=== PATIENT | female | born 1985 | race Two or more races ===

== ENCOUNTER 2020-10-28 13:21 | Inpatient (IN) | payer OTHER ==
[~2020-10-28] VITALS: Ht 154.9 cm; Wt 130.5 kg
[2020-11-02] MEDS ORDERED: METOCLOPRAMIDE 5 MG/ML, 2ML ONE (05:49)
[2020-11-02] MEDS ORDERED: SODIUM CITRATE/CITRIC ACID 15 ML UDC ONE (05:49)
[2020-11-02] MEDS ORDERED: OXYTOCIN 30U/ 0.9% NaCL 500ML 500 ML ONE (05:50)
[2020-11-02] MEDS ORDERED: NEWBORN KIT ONE (05:50)
[2020-11-02 06:00] VITALS: BP 154/75
[2020-11-02] MEDS ORDERED: SODIUM CITRATE/CITRIC ACID 30 ML UDC PO ONE (06:00)
[2020-11-02] MEDS ORDERED: LACTATED RINGERS 1,000 ML IVBOLUS ONE (06:00)
[2020-11-02] MEDS ORDERED: ONDANSETRON 2MG/ML, 2ML IVPush ONE (06:00)
[2020-11-02] MEDS ORDERED: CALCIUM CARBONATE 500 MG TAB.CHEW PO PRN (06:00)
[2020-11-02] MEDS ORDERED: METOCLOPRAMIDE 5 MG/ML, 2ML IV ONE (06:00)
[2020-11-02 06:54] LABS: BASOPHILS % (AUTO) 0 % (0-1); EOSINOPHILS % (AUTO) 1 % (1-7); LYMPHOCYTES % (AUTO) 19 % (22-44); MEAN CORPUSCULAR HEMOGLOBIN 29.3 pg (27.0-34.8); MEAN CORPUSCULAR HGB CONC 33.4 g/dL (32.4-35.8); MEAN PLATELET VOLUME 9.7 fL (7.4-10.4); MONOCYTES % (AUTO) 6 % (2-9); NEUTROPHILS % (AUTO) 74 % (42-75); PLATELET COUNT 269 x10^3/uL (130-400); RED BLOOD COUNT 4.33 x10^6/uL (3.82-5.3); RED CELL DISTRIBUTION WIDTH 15.7 % (9.6-15.2)
[2020-11-02 06:55] LABS: MD NO
[2020-11-02] MEDS ORDERED: FENTANYL PF 100 MCG/2ML ONE (07:10)
[2020-11-02] MEDS ORDERED: OXYTOCIN 10 UNITS/ML, 1ML ONE ×4 (07:19)
[2020-11-02] MEDS ORDERED: CEFAZOLIN 1,000 MG ONE ×3 (07:19→07:36)
[2020-11-02] MEDS ORDERED: ONDANSETRON 2MG/ML, 2ML ONE (07:33)
[2020-11-02] MEDS ORDERED: EPHEDRINE 50 MG/ML, 1ML ONE (07:54)
[2020-11-02] MEDS ORDERED: PHENYLEPHRINE 10 MG/ML ONE (07:54)
[2020-11-02] MEDS ORDERED: KETOROLAC 30 MG/1 ML ONE (08:36)
[2020-11-02] MEDS ORDERED: BISACODYL 10 MG SUPP PR PRN (09:00)
[2020-11-02] MEDS: KETOROLAC 30 MG/1 ML IV SCH ×3 (09:00→21:34)
[2020-11-02] MEDS ORDERED: ONDANSETRON 2MG/ML, 2ML IVPush PRN (09:00)
[2020-11-02] MEDS ORDERED: LABETALOL 5MG/ML, 20ML IV PRN (09:00)
[2020-11-02] MEDS ORDERED: CARBOPROST TROMETHAMINE 250 MCG/ML, 1ML IM PRN (09:00)
[2020-11-02] MEDS ORDERED: ONDANSETRON 2MG/ML, 2ML IV PRN (09:00)
[2020-11-02] MEDS ORDERED: METOCLOPRAMIDE 5 MG/ML, 2ML IV PRN (09:00)
[2020-11-02] MEDS ORDERED: OXYcodone 5 MG/5 ML ORAL.SOL UDC PO PRN (09:00)
[2020-11-02] MEDS: LACTATED RINGERS 1,000 ML IV SCH ×2 (09:00→17:00)
[2020-11-02] MEDS ORDERED: MISOPROSTOL 200 MCG TABLET PO PRN (09:00)
[2020-11-02] MEDS ORDERED: DIPHENHYDRAMINE 50 MG/ML, 1ML IVPush PRN (09:00)
[2020-11-02] MEDS ORDERED: GLYCERIN ADULT SUPP PR PRN (09:00)
[2020-11-02] MEDS ORDERED: ACETAMINOPHEN 325 MG TABLET PO PRN (09:00)
[2020-11-02] MEDS ORDERED: METHYLERGONOVINE 0.2 MG/ML IM PRN (09:00)
[2020-11-02] MEDS ORDERED: TRANEXAMIC ACID 100 MG/ML, 10ML IV ONE (09:00)
[2020-11-02] MEDS ORDERED: morphine SULFATE 10 MG/ML, 1ML IVPush PRN ×3 (09:00→13:30)
[2020-11-02] MEDS ORDERED: LACTATED RINGERS 1,000 ML IV SCH (09:00)
[2020-11-02] MEDS ORDERED: EPHEDRINE 50 MG/ML, 1ML IVPush PRN (09:00)
[2020-11-02] MEDS: PRENATAL VIT/IRON/FA 1 EACH TABLET PO SCH (09:00)
[2020-11-02] MEDS ORDERED: FENTANYL PF 100 MCG/2ML IV PRN (09:00)
[2020-11-02] MEDS ORDERED: OXYcodone/APAP 5/325MG TABLET PO PRN (09:00)
[2020-11-02] MEDS ORDERED: OXYcodone 5 MG/5 ML ORAL.SOL UDC ONE (10:09)
[2020-11-02] MEDS: OXYTOCIN 30U/ 0.9% NaCL 500ML 500 ML IV SCH ×2 (10:17→19:00)
[2020-11-02 11:30] VITALS: BP 120/76
[2020-11-02] MEDS: SIMETHICONE 80 MG CHEW TAB PO PRN ×2 (12:01→18:36)
[2020-11-02] MEDS ORDERED: MORPHINE SULFATE 4 MG/ML, 1ML ONE (12:42)
[2020-11-02] MEDS ORDERED: MORPHINE SULFATE 4 MG/ML, 1ML IVPush PRN ×2 (13:00→13:30)
[2020-11-02] MEDS: ACETAMINOPHEN 325 MG TABLET PO PRN ×2 (14:37→18:36)
[2020-11-02] MEDS: OXYcodone IR 5MG TABLET PO PRN ×2 (14:39→18:37)
[2020-11-02 16:00] VITALS: BP 122/72
[2020-11-02 16:14] LABS: BASOPHILS % (AUTO) 1 % (0-1); EOSINOPHILS % (AUTO) 0 % (1-7); LYMPHOCYTES % (AUTO) 14 % (22-44); MEAN CORPUSCULAR HEMOGLOBIN 29.3 pg (27.0-34.8); MEAN CORPUSCULAR HGB CONC 33.9 g/dL (32.4-35.8); MEAN PLATELET VOLUME 9.6 fL (7.4-10.4); MONOCYTES % (AUTO) 5 % (2-9); NEUTROPHILS % (AUTO) 80 % (42-75); PLATELET COUNT 226 x10^3/uL (130-400); RED BLOOD COUNT 3.96 x10^6/uL (3.82-5.3); RED CELL DISTRIBUTION WIDTH 15.6 % (9.6-15.2)
[2020-11-02 16:24] LABS: MD NO
[2020-11-02 20:00] VITALS: BP 116/74
[2020-11-03] MEDS: ACETAMINOPHEN 325 MG TABLET PO PRN ×6 (00:15→23:21)
[2020-11-03] MEDS: OXYcodone IR 5MG TABLET PO PRN ×6 (00:16→23:22)
[2020-11-03 00:21] VITALS: BP 124/70
[2020-11-03] MEDS: LACTATED RINGERS 1,000 ML IV SCH ×3 (01:00→17:00)
[2020-11-03] MEDS: KETOROLAC 30 MG/1 ML IV SCH ×4 (03:28→22:03)
[2020-11-03 05:00] VITALS: BP 118/72
[2020-11-03] MEDS: OXYTOCIN 30U/ 0.9% NaCL 500ML 500 ML IV SCH ×2 (05:00→15:00)
[2020-11-03 08:00] VITALS: BP 118/77
[2020-11-03] MEDS: SIMETHICONE 80 MG CHEW TAB PO PRN ×2 (09:26→19:03)
[2020-11-03] MEDS: PRENATAL VIT/IRON/FA 1 EACH TABLET PO SCH (09:28)
[2020-11-03] MEDS: DOCUSATE 100 MG CAPSULE PO PRN ×2 (09:29→22:04)
[2020-11-03 20:18] VITALS: BP 146/88
[2020-11-04] MEDS: OXYTOCIN 30U/ 0.9% NaCL 500ML 500 ML IV SCH (00:25)
[2020-11-04] MEDS: LACTATED RINGERS 1,000 ML IV SCH ×2 (00:25→09:00)
[2020-11-04] MEDS: ACETAMINOPHEN 325 MG TABLET PO PRN ×2 (04:19→20:16)
[2020-11-04] MEDS: OXYcodone IR 5MG TABLET PO PRN ×5 (04:19→20:11)
[2020-11-04] MEDS: KETOROLAC 30 MG/1 ML IV SCH (04:19)
[2020-11-04 07:30] VITALS: BP 140/84
[2020-11-04] MEDS: PRENATAL VIT/IRON/FA 1 EACH TABLET PO SCH (07:43)
[2020-11-04] MEDS: DOCUSATE 100 MG CAPSULE PO PRN ×2 (07:43→20:11)
[2020-11-04] MEDS ORDERED: IBUPROFEN 800 MG TABLET PO PRN (09:00)
[2020-11-04] MEDS: IBUPROFEN 600 MG TABLET PO PRN ×3 (10:27→22:37)
[2020-11-04 16:30] VITALS: BP 156/101
[2020-11-04 19:40] VITALS: BP 135/82
[2020-11-05] MEDS: OXYcodone IR 5MG TABLET PO PRN ×4 (00:24→12:54)
[2020-11-05] MEDS: ACETAMINOPHEN 325 MG TABLET PO PRN ×4 (00:24→12:54)
[2020-11-05 04:50] VITALS: BP 127/84
[2020-11-05] MEDS: IBUPROFEN 600 MG TABLET PO PRN ×2 (04:57→12:54)
[2020-11-05] MEDS: PRENATAL VIT/IRON/FA 1 EACH TABLET PO SCH (08:45)
[2020-11-05] MEDS: DOCUSATE 100 MG CAPSULE PO PRN (08:45)
[2020-11-05 08:56] VITALS: BP 129/82
[2020-11-05] MEDS ORDERED: DOCU-131 PO (10:58)
[2020-11-05] MEDS ORDERED: IBUP-1222 PO (10:58)
[2020-11-05] MEDS ORDERED: OXYC-302 PO (10:58)
== END 2020-11-05 13:50 | disposition home or self-care (01) | DRG 788 ==
LOC: LDIP 11-02 05:33 → 2NW 11-02 11:04
PROVIDERS: ADMIT Student in an Organized Health Care Education/Training Program; ATTEND Student in an Organized Health Care Education/Training Program
PROC: 10D00Z1 Extraction of Products of Conception, Low, Open Approach (ICD-10-PCS; principal; 2020-11-02)
DX: O99.214 Obesity complicating childbirth (principal); O34.211 Maternal care for low transverse scar from previous cesarean delivery; O99.52 Diseases of the respiratory system complicating childbirth; J45.909 Unspecified asthma, uncomplicated; E66.9 Obesity, unspecified; Z37.0 Single live birth; Z3A.37 37 weeks gestation of pregnancy; Z80.0 Family history of malignant neoplasm of digestive organs; Z80.3 Family history of malignant neoplasm of breast; Z82.49 Family history of ischemic heart disease and other diseases of the circulatory system; Z83.3 Family history of diabetes mellitus; Z88.1 Allergy status to other antibiotic agents
CPT/HCPCS: 36415; 85025; 86592; 86850; 86900; 86923; G0378; J0690; J1885; J2405; J3010; J2270; J2370; J2590; J2765; J7120